=== PATIENT | male | born 1980 | race Caucasian/White ===

== ENCOUNTER 2016-12-21 19:53 | Observation (INO) | payer OTHER, MEDICAID ==
[~2016-12-21] VITALS: Ht 180.3 cm; Wt 91.7 kg
[~2016-12-21 19:53] MED LIST: HYDR-3533 PO
[2016-12-21] MEDS ORDERED: SODIUM CHLOR 0.9% 1000 ML INJ 1,000 ML IV SCH (19:59)
[2016-12-21 20:00] VITALS: BP 120/75; PULSE 89; RESP 18; TEMP 97.6; O2SAT 95
[2016-12-21] MEDS ORDERED: LIDOCAINE 1%/EPINEPHrine 1:100,000 SOLN 20 ML VIAL INFIL ONE (20:00)
[2016-12-21] MEDS ORDERED: SODIUM CHLORIDE 0.9% FLUSH 5 ML FLUSH IVF PRN (20:00)
[2016-12-21] MEDS ORDERED: DIPHTH/TETANUS/ACEL PERTUSSIS (BOOSTER) 0.5 ML VIAL/PFS IM ONE (20:00)
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
[2016-12-21] MEDS ORDERED: HYDROmorphone HCL PF 1 MG/ML VIAL IV PUSH ONE ×2 (21:00→22:15)
[2016-12-21] MEDS ORDERED: IOHEXOL 350 MG/ML 10 ML VIAL (for RAD DIAG) IV ONE (21:29)
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
[2016-12-21 21:37] LABS: AUTOMATED NEUTROPHIL # 8.4 TH/MM3 (1.8-7.7); BASOPHIL # 0.1 TH/MM3 (0-0.2); BASOPHIL % 0.5 % (0.0-2.0); EOSINOPHIL # 0.2 TH/MM3 (0-0.4); EOSINOPHIL % 1.4 % (0.0-4.0); HEMO FLAGS DIFF FINAL; LYMPH % 26.8 % (9.0-44.0); LYMPHOCYTE # 3.5 TH/MM3 (1.0-4.8); MEAN CELL VOLUME 87.8 FL (80.0-100.0); MEAN CORPUSCULAR HEMOGLOBIN 29.9 PG (27.0-34.0); MEAN CORPUSCULAR HGB CONC 34.1 % (32.0-36.0); MONO % 7.1 % (0.0-8.0); NEUT % 64.2 % (16.0-70.0); PLATELET COUNT 230 TH/MM3 (150-450); RED BLOOD COUNT 4.78 MIL/MM3 (4.50-5.90); RED CELL DISTRIBUTION WIDTH 13.6 % (11.6-17.2); WHITE BLOOD COUNT 13.1 TH/MM3 (4.0-11.0)
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
[2016-12-21 21:57] LABS: ANION GAP 8 MEQ/L (5-15); BICARBONATE 29.5 MEQ/L (21.0-32.0); BLOOD UREA NITROGEN 21 MG/DL (7-18); CHLORIDE 108 MEQ/L (98-107); GLOMERULAR FILTRATION RATE 64 ML/MIN (>89); POTASSIUM 3.6 MEQ/L (3.5-5.1); SODIUM (NA) 145 MEQ/L (136-145)
[2016-12-21] MEDS ORDERED: ORPHENADRINE INJ 60 MG/2 ML AMP IM ONE (22:45)
[2016-12-21] MEDS ORDERED: KETOROLAC TROMETHAMINE 30 MG/ML (IVP) VIAL IV PUSH ONE (22:45)
[2016-12-21 23:00] VITALS: BP 126/84; PULSE 87
--- NOTE | 2016-12-21 23:15 | PD ---
Physical Exam Time Seen by Provider: 22:40 Data Data Last Documented VS Vital Signs Date Time Temp Pulse Resp B/P Pulse Ox O2 Delivery O2 Flow Rate FiO2 12/21/16 20:00 97.6 89 18 120/75 95 Orders Basic Metabolic Panel (Bmp) (12/21/16 19:59) Complete Blood Count With Diff (12/21/16 19:59) Alcohol (Ethanol) (12/21/16 19:59) Chest, Single Ap (12/21/16 19:59) Ct Brain W/O Iv Contrast(Rout) (12/21/16 19:59) Ct Cerv Spine W/O Contrast (12/21/16 19:59) Ct Abd/Pel W Iv Contrast(Rout) (12/21/16 19:59) Ct Lumb Spine W/O Contrast (12/21/16 19:59) Iv Access Insert/Monitor (12/21/16 19:59) Ecg Monitoring (12/21/16 19:59) Oximetry (12/21/16 19:59) Oxygen Administration (12/21/16 19:59) Remove Backboard (12/21/16 19:59) Wound Care (12/21/16 19:59) Tzkf-Htp-Bjkfav (Booster) Inj (Boostrix (12/21/16 20:00) Sodium Chlor 0.9% 1000 Ml Inj (Ns 1000 M (12/21/16 19:59) Sodium Chloride 0.9% Flush (Ns Flush) (12/21/16 20:00) Lidocai-Epi 1%-1:100,000 Inj (Xylocaine- (12/21/16 20:00) Hydromorphone Pf Inj (Dilaudid Pf Inj) (12/21/16 21:00) Iohexol 350 Inj (Omnipaque 350 Inj) (12/21/16 21:29) TLSO (12/21/16 ) Hydromorphone Pf Inj (Dilaudid Pf Inj) (12/21/16 22:15) Zully Collar (12/21/16 ) Brace Lso-Orthosis (12/21/16 ) Brace Thoracic Ext (12/21/16 ) Collar Winside (12/21/16 ) Ketorolac Inj (Toradol Inj) (12/21/16 22:45) Orphenadrine Inj (Norflex Inj) (12/21/16 22:45) Labs Laboratory Tests Test 12/21/16 20:30 White Blood Count 13.1 TH/MM3 Red Blood Count 4.78 MIL/MM3 Hemoglobin 14.3 GM/DL Hematocrit 42.0 % Mean Corpuscular Volume 87.8 FL Mean Corpuscular Hemoglobin 29.9 PG Mean Corpuscular Hemoglobin 34.1 % Concent Red Cell Distribution Width 13.6 % Platelet Count 230 TH/MM3 Mean Platelet Volume 8.1 FL Neutrophils (%) (Auto) 64.2 % Lymphocytes (%) (Auto) 26.8 % Monocytes (%) (Auto) 7.1 % Eosinophils (%) (Auto) 1.4 % Basophils (%) (Auto) 0.5 % Neutrophils # (Auto) 8.4 TH/MM3 Lymphocytes # (Auto) 3.5 TH/MM3 Monocytes # (Auto) 0.9 TH/MM3 Eosinophils # (Auto) 0.2 TH/MM3 Basophils # (Auto) 0.1 TH/MM3 CBC Comment DIFF FINAL Differential Comment Sodium Level 145 MEQ/L Potassium Level 3.6 MEQ/L Chloride Level 108 MEQ/L Carbon Dioxide Level 29.5 MEQ/L Anion Gap 8 MEQ/L Blood Urea Nitrogen 21 MG/DL Creatinine 1.27 MG/DL Estimat Glomerular Filtration 64 ML/MIN Rate Random Glucose 95 MG/DL Calcium Level 8.6 MG/DL Ethyl Alcohol Level LESS THAN 3 MG/DL MDM Medical Record Reviewed: Yes Supervised Visit with NAMAN: No Narrative Course The patient has laceration to the left calf, he verbally consents to laceration repair. Procedures Procedure Narrative LACERATION LOCATION: Left calf LENGTH: 3-4 cm NUMBER OF STITCHES/PEPE: 7 REPAIR: The area of the laceration was prepped with Betadine and sterilely draped. The laceration was infiltrated with percent lidocaine with epinephrine. The wound was copiously irrigated and explored without evidence of foreign body, tendon injury or neurovascular injury. The wound was closed using 4-0 prolene simple interrupted. This was a single layer repair. A sterile dressing was applied. The patient was advised to keep the dressing clean and dry. Patient tolerated the procedure well. Scripts No Active Prescriptions or Reported Meds Donald Waters Dec 21, 2016 23:15
[2016-12-22] VITALS (10 sets, daily range): BP systolic 108–123; BP diastolic 58–77; PULSE 72–88; RESP 16–21; TEMP 95.5–99.1; O2SAT 94–98
[2016-12-22] MEDS ORDERED: SODIUM CHLORIDE 0.9% FLUSH 5 ML FLUSH IVF PRN (01:30)
[2016-12-22] MEDS ORDERED: ONDANSETRON HCL 4 MG/2 ML VIAL IV PRN (01:30)
[2016-12-22] MEDS ORDERED: SODIUM CHLORIDE 0.9% FLUSH 5 ML FLUSH IV FLUSH PRN (01:45)
[2016-12-22] MEDS ORDERED: MORPHINE SULFATE 4 MG/ML INJ IV PRN (01:45)
[2016-12-22] MEDS: SODIUM CHLOR 0.9% 1000 ML INJ 1,000 ML IV SCH ×2 (03:31→14:11)
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
[2016-12-22] MEDS ORDERED: ENOXAPARIN SODIUM 40 MG/0.4 ML SYRINGE SQ SCH (08:00)
[2016-12-22] MEDS: PANTOPRAZOLE SODIUM 40 MG VIAL IV SCH (08:54)
[2016-12-22] MEDS: SODIUM CHLORIDE 0.9% FLUSH 5 ML FLUSH IV FLUSH SCH ×2 (08:54→20:38)
[2016-12-22] MEDS: SENNOSIDES 8.6 MG TAB PO SCH (08:57)
[2016-12-22] MEDS: MORPHINE SULFATE 30 MG CONTROLLED RELEASE TAB PO SCH ×2 (08:58→20:38)
[2016-12-22] MEDS: NICOTINE 21 MG/24 HR PATCH TD SCH (08:59)
[2016-12-22] MEDS ORDERED: SODIUM CHLORIDE 0.9% FLUSH 5 ML FLUSH IVF SCH (09:00)
[2016-12-22] MEDS: IBUPROFEN 400 MG TAB PO SCH ×2 (14:10→21:31)
[2016-12-22] MEDS: ENOXAPARIN SODIUM 40 MG/0.4 ML SYRINGE SQ SCH ×2 (21:00→21:31)
[2016-12-22] MEDS ORDERED: CYCLOBENZAPRINE HCL 10 MG TAB PO SCH (21:00)
[2016-12-23] MEDS: SODIUM CHLOR 0.9% 1000 ML INJ 1,000 ML IV SCH (01:38)
[2016-12-23 04:02] VITALS: BP 141/68; PULSE 102; RESP 18; TEMP 98.7; O2SAT 98
[2016-12-23] MEDS: IBUPROFEN 400 MG TAB PO SCH (05:09)
[2016-12-23 07:37] VITALS: BP 138/86; PULSE 101; RESP 20; TEMP 97.8; O2SAT 97
[2016-12-23] MEDS: MORPHINE SULFATE 30 MG CONTROLLED RELEASE TAB PO SCH ×3 (07:49→22:00)
[2016-12-23] MEDS: SENNOSIDES 8.6 MG TAB PO SCH (07:50)
[2016-12-23] MEDS: SODIUM CHLORIDE 0.9% FLUSH 5 ML FLUSH IV FLUSH SCH ×2 (07:51→21:02)
[2016-12-23] MEDS: NICOTINE 21 MG/24 HR PATCH TD SCH (07:51)
[2016-12-23] MEDS: PANTOPRAZOLE SODIUM 40 MG VIAL IV SCH (07:52)
[2016-12-23] MEDS: REMOVE OLD PATCH TD SCH (07:52)
[2016-12-23] MEDS: oxyCODONE/ACETAMINOPHEN 5 MG/325 MG TAB PO PRN ×2 (12:11→17:28)
[2016-12-23 12:30] VITALS: BP 141/86; PULSE 105; RESP 20; TEMP 98; O2SAT 97
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
[2016-12-23] MEDS: IBUPROFEN 600 MG TAB PO SCH ×2 (13:56→22:15)
[2016-12-23 15:51] VITALS: BP 131/73; PULSE 112; RESP 20; TEMP 98.1; O2SAT 98
[2016-12-23 18:30] LABS: AMPHETAMINE, URINE POS (NEG); BARBITURATES, URINE NEG (NEG); COCAINE, URINE POS (NEG)
[2016-12-23 19:24] VITALS: BP 138/89; PULSE 112; RESP 20; TEMP 98.7; O2SAT 98
[2016-12-23] MEDS: ENOXAPARIN SODIUM 40 MG/0.4 ML SYRINGE SQ SCH (21:00)
[2016-12-23] MEDS: CYCLOBENZAPRINE HCL 10 MG TAB PO SCH (22:15)
[2016-12-24 00:16] VITALS: BP 135/89; PULSE 96; RESP 20; TEMP 98.5; O2SAT 97
[2016-12-24 04:22] VITALS: BP 163/98; PULSE 100; RESP 20; TEMP 98.5; O2SAT 96
[2016-12-24] MEDS: CYCLOBENZAPRINE HCL 10 MG TAB PO SCH (06:02)
[2016-12-24] MEDS: IBUPROFEN 600 MG TAB PO SCH (06:03)
[2016-12-24] MEDS: MORPHINE SULFATE 30 MG CONTROLLED RELEASE TAB PO SCH ×2 (07:32)
[2016-12-24] MEDS: SENNOSIDES 8.6 MG TAB PO SCH (08:30)
[2016-12-24] MEDS: SODIUM CHLORIDE 0.9% FLUSH 5 ML FLUSH IV FLUSH SCH (08:31)
[2016-12-24 08:42] VITALS: BP 166/89; PULSE 105; RESP 18
[2016-12-24] MEDS ORDERED: NICO21DI2 TD (08:49)
[2016-12-24] MEDS ORDERED: IBUP-232 PO (08:49)
[2016-12-24] MEDS ORDERED: CYCL1TAB29 PO (08:49)
[2016-12-24] MEDS ORDERED: MORP1TAB25 PO (08:49)
[2016-12-24] MEDS ORDERED: SENN8.6T15 PO (08:49)
[2016-12-24] MEDS: REMOVE OLD PATCH TD SCH (09:00)
[2016-12-24] MEDS: NICOTINE 21 MG/24 HR PATCH TD SCH (09:00)
[2016-12-24] MEDS ORDERED: PANTOPRAZOLE SOD 40 MG DELAYED RELEASE TAB PO SCH (09:00)
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
[2016-12-24] MEDS ORDERED: CEPH-460 PO (09:54)
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
== END 2016-12-24 11:22 | disposition home or self-care (01) ==
LOC: NEPC 19:53 → NEDA 12-22 01:32 → NEPFCDU 12-22 04:33
PROVIDERS: ADMIT Neurological Surgery; ATTEND Neurological Surgery
DX: M54.5 Low back pain (principal); S81.812A Laceration without foreign body, left lower leg, initial encounter; V27.4XXA Motorcycle driver injured in collision with fixed or stationary object in traffic accident, initial encounter; Y92.410 Unspecified street and highway as the place of occurrence of the external cause; F17.210 Nicotine dependence, cigarettes, uncomplicated; F12.90 Cannabis use, unspecified, uncomplicated; Z23 Encounter for immunization; Z87.828 Personal history of other (healed) physical injury and trauma; S22.080A Wedge compression fracture of T11-T12 vertebra, initial encounter for closed fracture; K44.9 Diaphragmatic hernia without obstruction or gangrene; G93.89 Other specified disorders of brain; S06.0X9A Concussion with loss of consciousness of unspecified duration, initial encounter
CPT/HCPCS: 12002; 70450; 71010; 72020; 72125; 72131; 74177; 80048; 80307; 85025; 90471; 90715; 96372; 96374; 96375; 96376; 97110; 97116; 97162; 97166; 99285; C9113; G0378; G8987; G8988; J1170; J1885; J2270; J2360; J7030; L0150; L0200; L0484; Q9967; J1650